=== PATIENT | female | born 1995 | race African-American/Black ===

== ENCOUNTER 2021-11-03 11:05 | Outpatient (RCR) | payer SELFPAY ==
[2021-11-03 11:05] VITALS: BMI 46.9
[2021-11-03 11:06] VITALS: BMI 46.9
== END 2022-01-18 09:27 | disposition home or self-care (01) ==
LOC: ANHDMC 11:05
PROVIDERS: PCP Family Medicine; Visit Provider Family Medicine
DX: E66.3 Overweight (principal); Z71.3 Dietary counseling and surveillance
CPT/HCPCS: 97802